=== PATIENT | male | born 1945 | race Caucasian/White ===

== ENCOUNTER → 2016-09-28 | Outpatient (CLI) | payer MEDICARE ==
[~2016-09-28] MED LIST: ADVIL200 MG PO; ALBUTEROL0.09 MG/A1 IH; ALDACTONE50 MG PO; ATIVAN PO; CAMPRAL333 MG PO; CLEOCIN HCL300 MG PO; COMBIRESP IH; CREON PO; EFFEXOR 75M75 MG/TAB PO; EFFEXOR XR75 MG/CAP PO; ENULOSE PO; FOLIC ACID PO; FOLIC ACID1 MG PO; KDUR PO; KLONOPIN 1MG1 MG PO; LACTULOSE SYR 10/15 PO; LASIX 40MG TABL40 MG PO; LASIX PO; LEVAQUIN 750MG750 M1 PO; MULTIPLE VITAMI1 TA5 PO; MVI; MVI PO; NORCO 325 MG-51 TAB PO; POTASSIUM CH2 MEQ/ML PO; PREDNISONE20 MG PO; PREVACID 15MG15 MG PO; PREVACID 30MG30 M1 PO; PREVACID 30MG30 MG PO; PRILOSEC 20MG20 MG PO; PROAIR HFA0.09 MG/AC IH; RT SPIRIVA18 MCG IH; SUPER EPA W/BO400 MG PO; TYLENOL 325MG325 MG PO; ULTRAM ER100 MG PO; VITAMIN B 1 PO; [UNRECOGNIZED DRUG - CODE] PO
== END ==
LOC: COL.VAS 08:55
DX: J44.9 Chronic obstructive pulmonary disease, unspecified (principal); I08.1 Rheumatic disorders of both mitral and tricuspid valves

== ENCOUNTER → 2016-11-02 | Outpatient (CLI) | payer MEDICARE | LOC: COL.RAD 10:30 | DX: Z13.6 Encounter for screening for cardiovascular disorders (principal); I71.4 Abdominal aortic aneurysm, without rupture; Z87.891 Personal history of nicotine dependence ==

== ENCOUNTER → 2018-03-07 | Outpatient (CLI) | payer MEDICARE | LOC: COL.PUL 09:53 | DX: J44.9 Chronic obstructive pulmonary disease, unspecified (principal); I07.1 Rheumatic tricuspid insufficiency ==

== ENCOUNTER 2018-11-20 14:35 | Emergency (ER) | payer MEDICARE ==
[~2018-11-20] VITALS: Ht 185.4 cm; Wt 122.7 kg
[2018-11-20 14:38] VITALS: TEMP 98.3
[2018-11-20 15:16] LABS: BASO % 0.4 % (0.0-2.0); EOS # 0.2 (0.0-0.7); EOS % 2.2 % (0-4.0); GRAN # 4.2 (1.4-6.5); HEMATOCRIT 40.9 % (42.0-52.0); HEMOGLOBIN 12.5 g/dl (13.5-18.0); LYMPH % 26.4 % (20.0-51.0); MEAN CELL VOLUME 99 fl (80.0-100.0); MEAN CORPUSCULAR HEMOGLOBIN 30 pg (27.0-31.0); MEAN CORPUSCULAR HGB CONC 31 g/dl (33.0-37.0); MEAN PLATELET VOLUME 8.8 fl (7.4-10.4); MONO # 1.1 (0.1-0.6); MONO % 14.6 % (1.7-9.3); PLATELET COUNT 166 K/mm3 (130-400); RED BLOOD COUNT 4.13 M/mm3 (4.20-5.60); REDCELL DISTRIBUTION WIDTH-CV 12.5 % (11.5-14.5)
[2018-11-20 15:22] LABS: PROTHROMBIN TIME 11.7 SECONDS (9.7-12.8)
[2018-11-20 15:28] LABS: LACTIC ACID 0.8 mmol/L (0.4-2.0)
[2018-11-20 15:30] LABS: ALANINE AMINOTRANSFERASE 13 U/L (21-72); ALBUMIN 3.9 gm/dL (3.5-5.0); ALKALINE PHOSPHATASE 70 U/L (50-136); AST,SGOT 28 U/L (15-37); BLOOD UREA NITROGEN 15 mg/dL (9-20); C-REACTIVE PROTEIN 1.2 mg/dL (0.0-0.9); CALCIUM 9.2 mg/dL (8.4-10.2); CREATININE, serum 0.55 (0.66-1.25); GLUCOSE 98 mg/dL (74-106); LIPASE 53 U/L (23-300); POTASSIUM 4.4 mmol/L (3.4-5.0); SODIUM 132 mmol/L (137-145); TOTAL PROTEIN 7.2 gm/dL (6.4-8.2)
[2018-11-20 15:33] LABS: ARTERIAL BLD GAS O2 SATURATION 94.3 % (92-100); ARTERIAL BLD GAS TCO2 CT 40.4; ARTERIAL BLOOD GAS BASE EXCESS 9.9 (-2-2); ARTERIAL BLOOD GAS HCO3 38.2 meq/L (22-26); ARTERIAL BLOOD GAS PO2 75.1 mmHg (80-100); ARTERIAL BLOOD GAS pH 7.35 (7.35-7.45)
[2018-11-20 15:34] LABS: ARTERIAL BLOOD GAS PCO2 70.8 mmHg (35-45)
[2018-11-20 15:35] LABS: CHLORIDE 79 mmol/L (98-107)
[2018-11-20 15:36] LABS: ALCOHOL(ethanol),MEDICAL < 10 mg/dL; ANION GAP 12 mmol/L (7-16); CARBON DIOXIDE 43 mmol/L (22-30)
[2018-11-20 15:40] LABS: TROPONIN-I < 0.012 ng/mL (0.000-0.035)
[2018-11-20] MEDS ORDERED: STIOLTO RESPIMAT4 GM (16:12)
[2018-11-20] MEDS ORDERED: MOBIC15 MG PO (16:12)
[2018-11-20] MEDS ORDERED: PREDNISONE20 MG (16:13)
[2018-11-20 17:10] LABS: COLLECTION METHOD CLEAN CATCH
[2018-11-20 17:27] LABS: AMORPHOUS CRYSTAL Present /uL; MUCOUS Present /lpf; PH 9 (5-8); SQUAMOUS EPITHELIAL 0-2 /hpf; URINE APPEARANCE Cloudy; URINE BACTERIA None Seen /hpf; URINE BILIRUBIN Negative (NEGATIVE); URINE BLOOD Negative (NEGATIVE); URINE COLOR Yellow; URINE GLUCOSE Negative (NEGATIVE); URINE KETONE 1+ (NEGATIVE); URINE LEUKOCYTE ESTERASE Negative (NEGATIVE); URINE NITRATE Negative (NEGATIVE); URINE PROTEIN(semi-quant) 1+ (NEGATIVE); URINE RBC None Seen /hpf; URINE UROBILINOGEN Negative (NEGATIVE)
[2018-11-20 19:00] VITALS: BP 137/71; PULSE 69
== END 2018-11-20 19:15 | disposition home or self-care (01) ==
LOC: COL.ER 14:35
PROVIDERS: Emergency Medicine
DX: J44.9 Chronic obstructive pulmonary disease, unspecified (principal); R06.89 Other abnormalities of breathing; K74.60 Unspecified cirrhosis of liver; F17.210 Nicotine dependence, cigarettes, uncomplicated; Z98.890 Other specified postprocedural states; Z86.73 Personal history of transient ischemic attack (TIA), and cerebral infarction without residual deficits; Z66 Do not resuscitate; Z79.52 Long term (current) use of systemic steroids
CPT/HCPCS: J7030

== ENCOUNTER 2019-01-17 08:44 | Inpatient (IN) | payer MEDICARE ==
[2019-01-17] VITALS (268 sets, daily range): BP systolic 136–140; BP diastolic 79–88; PULSE 70–93; TEMP 97.9–99.1; O2SAT 76–100
[~2019-01-17] VITALS: Ht 182.9 cm; Wt 102.3 kg
[~2019-01-17 08:44] MED LIST changes: +MOBIC15 MG PO; +PREDNISONE20 MG; +STIOLTO RESPIMAT4 GM PO
[2019-01-17] MEDS ORDERED: TYLENOL 500MG500 MG PO (08:58)
[2019-01-17] MEDS ORDERED: LACTULOSE10 GM/153 PO (08:59)
[2019-01-17 09:32] LABS: BASO % 0.2 % (0.0-2.0); EOS # 0.2 (0.0-0.7); EOS % 2.5 % (0-4.0); GRAN # 5.3 (1.4-6.5); GRAN % 62.8 % (42.2-75.2); HEMATOCRIT 40.9 % (42.0-52.0); HEMOGLOBIN 11.7 g/dl (13.5-18.0); LYMPH # 1.6 (1.2-3.4); LYMPH % 19.1 % (20.0-51.0); MEAN CELL VOLUME 105 fl (80.0-100.0); MEAN CORPUSCULAR HEMOGLOBIN 30 pg (27.0-31.0); MEAN CORPUSCULAR HGB CONC 29 g/dl (33.0-37.0); MEAN PLATELET VOLUME 9.3 fl (7.4-10.4); MONO # 1.3 (0.1-0.6); PLATELET COUNT 150 K/mm3 (130-400); RED BLOOD COUNT 3.88 M/mm3 (4.20-5.60); REDCELL DISTRIBUTION WIDTH-CV 13.5 % (11.5-14.5)
[2019-01-17 09:37] LABS: ARTERIAL BLD GAS O2 SATURATION 93.8 % (92-100); ARTERIAL BLOOD GAS HCO3 48.5 meq/L (22-26)
[2019-01-17 09:41] LABS: ALANINE AMINOTRANSFERASE 20 U/L (21-72); ALBUMIN 3.6 gm/dL (3.5-5.0); ALKALINE PHOSPHATASE 60 U/L (50-136); AST,SGOT 31 U/L (15-37); BLOOD UREA NITROGEN 10 mg/dL (9-20); CALCIUM 8.8 mg/dL (8.4-10.2); CREATININE, serum 0.46 (0.66-1.25); GLUCOSE 93 mg/dL (74-106); POTASSIUM 4.5 mmol/L (3.4-5.0); SODIUM 142 mmol/L (137-145); TOTAL PROTEIN 6.7 gm/dL (6.4-8.2)
[2019-01-17 09:53] LABS: CHLORIDE 85 mmol/L (98-107)
[2019-01-17 09:54] LABS: CARBON DIOXIDE 52 mmol/L (22-30)
[2019-01-17 09:55] LABS: ALCOHOL(ethanol),MEDICAL < 10 mg/dL; ANION GAP 5 mmol/L (7-16)
--- NOTE | 2019-01-17 12:20 | NUR ---
Patient arrives to ICU 5 via ED cart. He is transferred to bed and attached to monitors. Assessment and vitals as charted. Care assumed at this time.
--- NOTE | 2019-01-17 12:27 | NUR ---
Dr. Ziegler in to see patient at this time. Orders as entered CPOE.
[2019-01-17 12:52] LABS: ARTERIAL BLD GAS O2 SATURATION 93.1 % (92-100); ARTERIAL BLD GAS TCO2 CT 54.5; ARTERIAL BLOOD GAS BASE EXCESS 21.3 (-2-2); ARTERIAL BLOOD GAS HCO3 51.7 meq/L (22-26); ARTERIAL BLOOD GAS PCO2 91.4 mmHg (35-45); ARTERIAL BLOOD GAS PO2 62.6 mmHg (80-100); ARTERIAL BLOOD GAS pH 7.37 (7.35-7.45)
[2019-01-17 16:30] LABS: ARTERIAL BLD GAS O2 SATURATION 98.5 % (92-100); ARTERIAL BLD GAS TCO2 CT 55.2; ARTERIAL BLOOD GAS BASE EXCESS 20.6 (-2-2); ARTERIAL BLOOD GAS HCO3 52.1 meq/L (22-26); ARTERIAL BLOOD GAS PCO2 102.7 mmHg (35-45); ARTERIAL BLOOD GAS PO2 142.1 mmHg (80-100); ARTERIAL BLOOD GAS pH 7.32 (7.35-7.45)
--- NOTE | 2019-01-17 19:15 | NUR ---
Bedside report received from DEDE Gilmore. Transfer of care.
--- NOTE | 2019-01-17 20:00 | NUR ---
Patient awake in bed watching tv. He is alert and oriented and answers all questions appropriately. Follows commands. Patient has complaints of pain rated 8/10, but is chronic pain from osteoarthritis in his right hip and lower back. Has no complaints where fracture is. Patient also has no complaints when he is relaxing, pain with movement. Offered some tylenol, he accepts, will be brought in with evening meds. Assessment complete. Patient has inspiratory and expiratory wheezes in all hadley, all lung hadley are also diminished. Patient's HR and rhythm are regular with normal S1 and S2. Bowel sounds active. Patient has some pitting edema to the lower extremities. Skin to the lower legs and feet is red and flaking, warm to the touch, nonpainful. Patient does have visible tremors. Temp is slightly elevated at 99.1. All other vitals remain stable. Patient has no further needs at this time. Will continue to monitor. Call light within reach.
[2019-01-18] VITALS (663 sets, daily range): BP systolic 93–137; BP diastolic 60–79; PULSE 70–94; TEMP 98.7–99.8; O2SAT 82–99
--- NOTE | 2019-01-18 | NUR ---
Patient awake watching tv. Patient remains alert and oriented, following commands. Assessment complete. Only changes from previous exam is lungs are now clear and diminished, no more wheezing present. Vitals have remained stable. Patient requests to be left off BiPAP for a little longer. No further needs. Will continue to monitor. Call light within reach.
--- NOTE | 2019-01-18 04:00 | NUR ---
Patient sleeping on BiPAP at this time. Awakens to name. Assessment complete and has no changes from previous exam. Vitals remain stable. Patient has no current needs. Will continue to monitor. Call light within reach.
[2019-01-18 05:21] LABS: GRAN # 4.7 (1.4-6.5); GRAN % 80.3 % (42.2-75.2); HEMATOCRIT 42.1 % (42.0-52.0); HEMOGLOBIN 12.4 g/dl (13.5-18.0); LYMPH % 16.8 % (20.0-51.0); MEAN CELL VOLUME 102 fl (80.0-100.0); MEAN CORPUSCULAR HEMOGLOBIN 30 pg (27.0-31.0); MEAN CORPUSCULAR HGB CONC 30 g/dl (33.0-37.0); MEAN PLATELET VOLUME 9.8 fl (7.4-10.4); MONO # 0.2 (0.1-0.6); MONO % 2.6 % (1.7-9.3); PLATELET COUNT 191 K/mm3 (130-400); RED BLOOD COUNT 4.13 M/mm3 (4.20-5.60); REDCELL DISTRIBUTION WIDTH-CV 13.3 % (11.5-14.5)
[2019-01-18 06:02] LABS: ARTERIAL BLD GAS O2 SATURATION 94.1 % (92-100); ARTERIAL BLD GAS TCO2 CT 46.5; ARTERIAL BLOOD GAS BASE EXCESS 16.8 (-2-2); ARTERIAL BLOOD GAS HCO3 44.5 meq/L (22-26); ARTERIAL BLOOD GAS PO2 65.9 mmHg (80-100); ARTERIAL BLOOD GAS pH 7.44 (7.35-7.45)
[2019-01-18 06:06] LABS: ARTERIAL BLOOD GAS PCO2 67.3 mmHg (35-45)
[2019-01-18 06:11] LABS: CALCIUM 9.1 mg/dL (8.4-10.2); CREATININE, serum 0.5 (0.66-1.25); POTASSIUM 4.3 mmol/L (3.4-5.0)
--- NOTE | 2019-01-18 07:30 | NUR ---
Bedside report given to Frantz RN and DEDE Petersen. Transfer of care.
--- NOTE | 2019-01-18 08:00 | NUR ---
PATIENT ASSESSED AND REPOSITIONED. VITALS STABLE. PATIENT PAIN ADDRESSED. QUESTIONS AND CONCERNS ADDRESSED. BED IN LOW POSITION, CALL LIGHT WITHIN REACH, ASSISTED WITH ORDERING BREAKFAST. WILL CONTINUE TO MONITOR.
--- NOTE | 2019-01-18 10:48 | NUR ---
Initial visit; Patient thanked [employer] for looking in on him and offering God's blessings. [employer] let him know he was listed as Jewish so he will be offered Holy Communion while he is hospitalized.
--- NOTE | 2019-01-18 12:50 | NUR ---
Recieved call from Dr. Ziegler's office to schedule 3 week follow up appointment. Appointment made for January at 0930. Patient's nurse notified
--- NOTE | 2019-01-18 13:33 | NUR ---
SW met with patient to discuss discharge planning. Patient lives alone at [facility]. He does most of his ADLs independently but they do help shower. He uses a walker and has a lift chair that he sits and sleeps in. Patients PCP is Dr Taylor and he obtains his medications at [facility]. Patients DPOA is on the chart and lists Jacquelyn Vanegas (ex ) as primary and Obie Vanegas (son) as secondary. PT is recommending SNF. Patient would like #1 [facility] and #2 [facility]. SW made referrals to both. Will continue to follow.
--- NOTE | 2019-01-18 15:15 | NUR ---
[facility] can accept patient but doesnt know if they will have transport if he discharges monday. [facility] has denied.
--- NOTE | 2019-01-18 19:00 | NUR ---
Report received by Trinity AGUAYO. Pt resting in bed at this time and asked for assistance with urinal. Assistance provided, reviewed use of the call light. Currently on oxymask for O2 administration.
[2019-01-19] VITALS (754 sets, daily range): BP systolic 114–132; BP diastolic 60–72; PULSE 78–94; TEMP 98.3–99; O2SAT 80–100
[2019-01-19 05:40] LABS: BASO % 0.1 % (0.0-2.0); GRAN # 6.7 (1.4-6.5); GRAN % 83.9 % (42.2-75.2); HEMATOCRIT 37.8 % (42.0-52.0); HEMOGLOBIN 11.7 g/dl (13.5-18.0); LYMPH # 0.7 (1.2-3.4); MEAN CELL VOLUME 98 fl (80.0-100.0); MEAN CORPUSCULAR HEMOGLOBIN 30 pg (27.0-31.0); MEAN CORPUSCULAR HGB CONC 31 g/dl (33.0-37.0); MONO # 0.5 (0.1-0.6); MONO % 6.7 % (1.7-9.3); PLATELET COUNT 189 K/mm3 (130-400); RED BLOOD COUNT 3.87 M/mm3 (4.20-5.60); REDCELL DISTRIBUTION WIDTH-CV 14.1 % (11.5-14.5)
[2019-01-19 05:54] LABS: ALBUMIN 3.4 gm/dL (3.5-5.0); BILIRUBIN,TOTAL 0.7 mg/dL (0.0-1.0); CALCIUM 9.2 mg/dL (8.4-10.2); CREATININE, serum 0.56 (0.66-1.25); POTASSIUM 4.1 mmol/L (3.4-5.0); TOTAL PROTEIN 6.5 gm/dL (6.4-8.2)
--- NOTE | 2019-01-19 07:15 | NUR ---
Report provided to Marcia Arechiga RN. Pt resting in bed with Bipap on although removed for administration of PO Levaquin and placed on Oxymask.
[2019-01-19 08:33] LABS: ARTERIAL BLD GAS O2 SATURATION 94.6 % (92-100); ARTERIAL BLOOD GAS BASE EXCESS 12.2 (-2-2); ARTERIAL BLOOD GAS HCO3 39.1 meq/L (22-26); ARTERIAL BLOOD GAS PCO2 61.4 mmHg (35-45); ARTERIAL BLOOD GAS PO2 75.6 mmHg (80-100); ARTERIAL BLOOD GAS pH 7.42 (7.35-7.45)
--- NOTE | 2019-01-19 12:39 | NUR ---
PATIENT ASSESSED AND REPOSITIONED. ASSISTED WITH ORDERING BREAKFAST. VITALS STABLE. WILL CONTINUE TO MONITOR.
--- NOTE | 2019-01-19 19:05 | NUR ---
Report received from Trinity AGUAYO. Pt resting in bed at this time. Pt was assisted with boosting in bed.
--- NOTE | 2019-01-19 19:33 | NUR ---
REPORT GIVEN TO DEDE JOHNSON.
[2019-01-20] VITALS (974 sets, daily range): BP systolic 114–139; BP diastolic 62–83; PULSE 64–80; TEMP 97.5–98.5; O2SAT 86–99
[2019-01-20 04:35] LABS: HEMATOCRIT 37.7 % (42.0-52.0); HEMOGLOBIN 11.5 g/dl (13.5-18.0); MEAN CELL VOLUME 98 fl (80.0-100.0); MEAN CORPUSCULAR HEMOGLOBIN 30 pg (27.0-31.0); MEAN CORPUSCULAR HGB CONC 31 g/dl (33.0-37.0); MEAN PLATELET VOLUME 9.8 fl (7.4-10.4); PLATELET COUNT 191 K/mm3 (130-400); RED BLOOD COUNT 3.83 M/mm3 (4.20-5.60); REDCELL DISTRIBUTION WIDTH-CV 14.4 % (11.5-14.5)
[2019-01-20 04:50] LABS: BAND 9 % (0-10); LYMPHOCYTE 20 % (20.0-51.0); NEUTROPHILS 56 % (42.0-75.2); PLATELET ESTIMATE NORMAL (NORMAL)
[2019-01-20 04:53] LABS: CALCIUM 9.1 mg/dL (8.4-10.2); CREATININE, serum 0.6 (0.66-1.25); POTASSIUM 3.6 mmol/L (3.4-5.0)
--- NOTE | 2019-01-20 07:10 | NUR ---
REPORT GIVEN TO DEDE CUEVA.
--- NOTE | 2019-01-20 07:30 | NUR ---
Report provided to Marcia AGUAYO. Pt resting in bed on Bipap at this time.
--- NOTE | 2019-01-20 09:30 | NUR ---
PATIENT ASSESSED, PAIN ADDRESSED, VITALS STABLE. CALL LIGHT AND PERSONAL ITEMS WITHIN REACH. WILL CONTINUE TO MONITOR.
--- NOTE | 2019-01-20 19:10 | NUR ---
Bedside report received from DEDE Petersen.
--- NOTE | 2019-01-20 20:00 | NUR ---
Patient is awake in bed, alert and oriented, watching TV. Patient states that the tylenol that was given helped and rates pain 5/10. No complaints of SOB. Assessment complete. Patient lungs are clear but diminished in all hadley. HR and rhythm regular with normal S1 and S2 heard. Bowel sounds active x4. Vitals are WNL and stable. Patient is still on 6L OM. Patient has no further needs at this time. Will continue to monitor. Call light within reach.
[2019-01-21] VITALS (858 sets, daily range): BP systolic 107–163; BP diastolic 59–88; PULSE 56–78; TEMP 97.4–98.8; O2SAT 87–100
--- NOTE | 2019-01-21 | NUR ---
Patient asleep on BiPAP at this time. Awakens to name. Patient rates pain the same as previously and in the same place. No complaints of SOB. Vitals remain stable. No further needs. Will continue to monitor. Call light within reach.
--- NOTE | 2019-01-21 04:00 | NUR ---
Patient awakens to name. Complains of same pain, but is not requesting medications at this time. No complaints of SOB. Vitals remain stable. Patient is tolerating BiPAP well. No further needs. Will continue to monitor. Call light within reach.
[2019-01-21 05:40] LABS: EOS # 0.1 (0.0-0.7); EOS % 0.7 % (0-4.0); GRAN # 5.1 (1.4-6.5); GRAN % 54.8 % (42.2-75.2); HEMATOCRIT 39.4 % (42.0-52.0); HEMOGLOBIN 12.2 g/dl (13.5-18.0); LYMPH # 2.8 (1.2-3.4); LYMPH % 30.5 % (20.0-51.0); MEAN CELL VOLUME 97 fl (80.0-100.0); MEAN CORPUSCULAR HEMOGLOBIN 30 pg (27.0-31.0); MEAN CORPUSCULAR HGB CONC 31 g/dl (33.0-37.0); MEAN PLATELET VOLUME 9.9 fl (7.4-10.4); MONO # 1.3 (0.1-0.6); MONO % 13.8 % (1.7-9.3); PLATELET COUNT 185 K/mm3 (130-400); RED BLOOD COUNT 4.06 M/mm3 (4.20-5.60); REDCELL DISTRIBUTION WIDTH-CV 14.3 % (11.5-14.5)
[2019-01-21 05:49] LABS: CREATININE, serum 0.73 (0.66-1.25); POTASSIUM 3.9 mmol/L (3.4-5.0)
--- NOTE | 2019-01-21 06:35 | NUR ---
Patient taken off BiPAP at this time per patient request.
--- NOTE | 2019-01-21 07:10 | NUR ---
Bedside report given to DEDE Lovelace.
--- NOTE | 2019-01-21 07:15 | NUR ---
Bedside shift report received from DEDE Alanis. Patient is awake, alert, and responds appropriately. Full assessment completed. Patient has no complaints or concerns at this time. Call light placed within reach. Bed in lowest position. Side rails up x3.
--- NOTE | 2019-01-21 09:20 | NUR ---
[facility] faxed patient update to Peña at [facility].
--- NOTE | 2019-01-21 13:33 | NUR ---
Peña, at [facility], contacted [facility] and requested the patient's bipap settings. SW provided those settings to Peña. Peña reports that they can accept the patient for a skilled stay; but that they will need to get the bipap ordered and delivered before they can take him. SW updated the clinical team.
--- NOTE | 2019-01-21 13:59 | NUR ---
PT ON BIPAP 18/5, BACKUP RATE 18, FIO2 45% WHEN WEARING BIPAP. ON 4-5 LPM NC WHEN OFF BIPAP.
--- NOTE | 2019-01-21 14:00 | NUR ---
Patient has had no major changes and remains stable at this time. Call light and personal items remain within reach.
--- NOTE | 2019-01-21 14:14 | NUR ---
Peña, at [facility], reports that they have the patient's bipap ordered, but that it will not be delivered to their facility until tomorrow morning. SW updated the patient's Binta SAUL.
--- NOTE | 2019-01-21 15:22 | NUR ---
Social work called to assess transfer to [facility]. Demetria with case management states that [facility] ordered the BiPAP but it will not be delivered until tomorrow, so the patient is not able to transfer today. tree trimming supervisor, Agnieszka, notified of patient's transfer orders to floor at this time.
--- NOTE | 2019-01-21 16:00 | NUR ---
Report called to DEDE Cardona on the medical floor at this time.
--- NOTE | 2019-01-21 16:40 | NUR ---
Patient transferred to medical bed 357 via medical bed with no complications. Patient has no complaints or concerns at this time. Nurse notified of arrival and at bedside to complete assessment. Call light and personal items within reach. Some personal items stored in the patient's closet.
--- NOTE | 2019-01-21 16:57 | NUR ---
PT arrived to 3rd floor Medical; PT A&Ox3, able to communicate needs and concerns; PT reported ABD pain 5/10 related to multiple administration of laxative medications; PT placed on humitified 4L oxygen via NC; 22G LAC INT in place; No acute SOB upon arrival, CTAB in upper lobes with diminished bases bilaterally; VS stable upon arrival; BLE erythematous skin with +1 pedal pulses with intermittent tenderness; ALLERGY TO PCN; last noted BM 01/16/[address] in [address]; Lovenox as VTE; HRRR; urinal at bedside; PT is an up with asssit with possible increase for fall risk; HX: left hip FX with osteoarthritis, uses walker at home, 4L oxygen via NC at home, COPD, depression, active smoker, recurrent pneumonia, ETOH (alcohol) with reported 6 beers daily not scoring, and BLE cellulitis; No further acute concerns reported or assessed at time of arrival assessment; Will continue to round and reassess. CDA
--- NOTE | 2019-01-21 18:56 | NUR ---
Report given to DEDE Garcia; No significant changes or concerns at shift change; Rounded to PT room with oncoming staff. CHAVAA
--- NOTE | 2019-01-21 19:45 | NUR ---
Shift assessment complete. Pt resting in bed, awake, a&o c occasional confused statements, cooperative c cares. Pt denies pain or other c/o at this time. Tele in place. INT patent. O2 per NC. Pt denies needs. Call light in reach, bed alarm on. Will continue to monitor.
[2019-01-22 00:10] VITALS: BP 134/65; PULSE 65; TEMP 98.5
[2019-01-22 03:37] VITALS: BP 132/66; PULSE 67; TEMP 97.8
[2019-01-22] MEDS ORDERED: Lidocaine 4% Patch TP (08:14)
[2019-01-22] MEDS ORDERED: COLACE 100100 MG/CAP PO (08:15)
[2019-01-22] MEDS ORDERED: MIRALAX PA17 GM/Dose PO (08:15)
[2019-01-22] MEDS ORDERED: THIAMINE 1100 MG/TAB PO (08:16)
[2019-01-22] MEDS ORDERED: FOLIC ACID 11 MG/TA1 PO (08:16)
[2019-01-22] MEDS ORDERED: MULTI VITAMINS1 TAB PO (08:16)
[2019-01-22 08:27] VITALS: BP 142/72; PULSE 67; TEMP 98.6
[2019-01-22] MEDS ORDERED: KLONOPIN 1MG1 MG PO (08:35)
--- NOTE | 2019-01-22 08:40 | NUR ---
Assessment complete. Pt sitting up in bed, A&O x 3. O2 at 4 L/min via NC. Pt reports still no BM, sched medications administered per orders to assist with BM. Saline lock IV to left AC without s/s of complications. No further needs reported Call light in reach.
[2019-01-22] MEDS ORDERED: PREDNISONE20 MG PO (08:45)
[2019-01-22] MEDS ORDERED: IPRATROPIUM BROM3 M1 IH (08:46)
--- NOTE | 2019-01-22 14:07 | NUR ---
SW met with patient to present IM and verbally discussed the contents. Patient was agreeable and signed the form. SW provided patient with a copy and put the original on the chart. Patient is dc today to [facility] for group home. Transportation will be here around 3 pm. Discharge orders faxed and nursing staff informed.
--- NOTE | 2019-01-22 16:20 | NUR ---
Pt discharged to [facility] via . Paperwork with staff.
--- NOTE | 2019-01-22 17:40 | NUR ---
Report called to Carmen nurse at [facility].
== END 2019-01-22 16:20 | DRG 189 ==
LOC: COL.ER 08:44 → ICU 10:09 → EDBEDREQ 10:35 → MEDICAL 01-21 16:31
PROVIDERS: Family Medicine; Internal Medicine Pulmonary Disease; Physician Assistant; ADMIT Hospitalist
PROC: 5A09457 Assistance with Respiratory Ventilation, 24-96 Consecutive Hours, Continuous Positive Airway Pressure (ICD-10-PCS; principal; 2019-01-21)
DX: J96.21 Acute and chronic respiratory failure with hypoxia (principal); J44.1 Chronic obstructive pulmonary disease with (acute) exacerbation; E87.2 Acidosis; E87.3 Alkalosis; J96.22 Acute and chronic respiratory failure with hypercapnia; S70.01XA Contusion of right hip, initial encounter; Z66 Do not resuscitate; G89.29 Other chronic pain; M16.0 Bilateral primary osteoarthritis of hip; S82.831A Other fracture of upper and lower end of right fibula, initial encounter for closed fracture; F10.20 Alcohol dependence, uncomplicated; K70.30 Alcoholic cirrhosis of liver without ascites; W17.89XA Other fall from one level to another, initial encounter; E87.8 Other disorders of electrolyte and fluid balance, not elsewhere classified; F17.210 Nicotine dependence, cigarettes, uncomplicated; D64.9 Anemia, unspecified; K59.00 Constipation, unspecified; Z88.0 Allergy status to penicillin; Y93.89 Activity, other specified; Y92.009 Unspecified place in unspecified non-institutional (private) residence as the place of occurrence of the external cause; Y99.8 Other external cause status
CPT/HCPCS: 99222-AI; 99231-AI; 99232-AI; 99233-AI; 99239; J1650; J2060; J2920; J7512

== ENCOUNTER 2019-04-12 14:38 | Emergency (ER) | payer MEDICARE ==
[~2019-04-12] VITALS: Ht 177.8 cm; Wt 114.5 kg
[~2019-04-12 14:38] MED LIST changes: +COLACE 100100 MG/CAP PO; +FOLIC ACID 11 MG/TA1 PO; +IPRATROPIUM BROM3 M1 IH; +LACTULOSE10 GM/153 PO; +Lidocaine 4% Patch TP; +MIRALAX PA17 GM/Dose PO; +MULTI VITAMINS1 TAB PO; +THIAMINE 1100 MG/TAB PO; +TYLENOL 500MG500 MG PO
[2019-04-12 15:16] LABS: BASO % 0.4 % (0.0-2.0); EOS # 0.3 (0.0-0.7); EOS % 4.1 % (0-4.0); GRAN # 3.5 (1.4-6.5); HEMATOCRIT 38.9 % (42.0-52.0); HEMOGLOBIN 12.1 g/dl (13.5-18.0); LYMPH # 3.1 (1.2-3.4); LYMPH % 38.9 % (20.0-51.0); MEAN CELL VOLUME 100 fl (80.0-100.0); MEAN CORPUSCULAR HEMOGLOBIN 31 pg (27.0-31.0); MEAN CORPUSCULAR HGB CONC 31 g/dl (33.0-37.0); MEAN PLATELET VOLUME 9.5 fl (7.4-10.4); MONO % 12.6 % (1.7-9.3); PLATELET COUNT 178 K/mm3 (130-400); RED BLOOD COUNT 3.89 M/mm3 (4.20-5.60); REDCELL DISTRIBUTION WIDTH-CV 13.1 % (11.5-14.5)
[2019-04-12 15:39] LABS: BILIRUBIN,TOTAL 0.7 mg/dL (0.0-1.0); CALCIUM 9.1 mg/dL (8.4-10.2); CREATININE, serum 0.5 (0.66-1.25); POTASSIUM 4.6 mmol/L (3.4-5.0); TOTAL PROTEIN 6.9 gm/dL (6.4-8.2)
[2019-04-12 16:15] VITALS: BP 97/67; PULSE 66; TEMP 98.2
== END 2019-04-12 17:15 | disposition home or self-care (01) ==
LOC: COL.ER 14:38
PROVIDERS: Emergency Medicine
DX: J96.10 Chronic respiratory failure, unspecified whether with hypoxia or hypercapnia (principal); J44.9 Chronic obstructive pulmonary disease, unspecified

== ENCOUNTER 2019-06-24 10:00 | Emergency (ER) | payer MEDICARE, MEDICAID ==
[~2019-06-24] VITALS: Ht 185.4 cm; Wt 115.9 kg
[2019-06-24 10:06] VITALS: TEMP 97.7
[2019-06-24 11:12] LABS: BASO % 0.4 % (0.0-2.0); EOS # 0.2 (0.0-0.7); EOS % 3.2 % (0-4.0); GRAN # 3.9 (1.4-6.5); GRAN % 56.2 % (42.2-75.2); HEMATOCRIT 38.5 % (42.0-52.0); HEMOGLOBIN 12.4 g/dl (13.5-18.0); LYMPH # 1.7 (1.2-3.4); LYMPH % 24.3 % (20.0-51.0); MEAN CELL VOLUME 96 fl (80.0-100.0); MEAN CORPUSCULAR HEMOGLOBIN 31 pg (27.0-31.0); MEAN CORPUSCULAR HGB CONC 32 g/dl (33.0-37.0); MEAN PLATELET VOLUME 9.1 fl (7.4-10.4); MONO # 1.1 (0.1-0.6); MONO % 15.5 % (1.7-9.3); PLATELET COUNT 205 K/mm3 (130-400); RED BLOOD COUNT 4.01 M/mm3 (4.20-5.60); REDCELL DISTRIBUTION WIDTH-CV 12.3 % (11.5-14.5)
[2019-06-24 11:15] LABS: PROTHROMBIN TIME 11.2 SECONDS (9.7-12.8)
[2019-06-24 11:17] LABS: ALANINE AMINOTRANSFERASE 21 U/L (21-72); ALBUMIN 4.2 gm/dL (3.5-5.0); ALKALINE PHOSPHATASE 71 U/L (50-136); AST,SGOT 36 U/L (15-37); BLOOD UREA NITROGEN 13 mg/dL (9-20); CALCIUM 8.6 mg/dL (8.4-10.2); CREATININE, serum 0.49 (0.66-1.25); GLUCOSE 90 mg/dL (74-106); POTASSIUM 4.2 mmol/L (3.4-5.0); SODIUM 128 mmol/L (137-145); TOTAL PROTEIN 7.1 gm/dL (6.4-8.2)
[2019-06-24 11:22] LABS: CARBON DIOXIDE 40 mmol/L (22-30); CHLORIDE 81 mmol/L (98-107)
[2019-06-24 11:23] LABS: ALCOHOL(ethanol),MEDICAL < 10 mg/dL; ANION GAP 7 mmol/L (7-16)
[2019-06-24 15:13] VITALS: BP 149/77; PULSE 88
== END 2019-06-24 14:45 | disposition home or self-care (01) ==
LOC: COL.ER 10:00
PROVIDERS: Emergency Medicine
DX: M25.552 Pain in left hip (principal); J44.9 Chronic obstructive pulmonary disease, unspecified; F17.210 Nicotine dependence, cigarettes, uncomplicated; W19.XXXA Unspecified fall, initial encounter
CPT/HCPCS: J3010; J7040

== ENCOUNTER 2019-07-26 08:31 | Emergency (ER) | payer MEDICARE, MEDICAID ==
[2019-07-26 08:34] VITALS: BP 148/90; TEMP 96.8
[2019-07-26 09:30] LABS: BASO % 0.3 % (0.0-2.0); EOS # 0.3 (0.0-0.7); EOS % 2.9 % (0-4.0); GRAN # 5.7 (1.4-6.5); GRAN % 62.2 % (42.2-75.2); HEMATOCRIT 39.7 % (42.0-52.0); HEMOGLOBIN 12.4 g/dl (13.5-18.0); LYMPH # 2.1 (1.2-3.4); LYMPH % 22.4 % (20.0-51.0); MEAN CELL VOLUME 97 fl (80.0-100.0); MEAN CORPUSCULAR HEMOGLOBIN 30 pg (27.0-31.0); MEAN CORPUSCULAR HGB CONC 31 g/dl (33.0-37.0); MEAN PLATELET VOLUME 8.8 fl (7.4-10.4); MONO # 1.1 (0.1-0.6); PLATELET COUNT 217 K/mm3 (130-400); RED BLOOD COUNT 4.09 M/mm3 (4.20-5.60); REDCELL DISTRIBUTION WIDTH-CV 12.8 % (11.5-14.5)
[2019-07-26 09:41] LABS: ALANINE AMINOTRANSFERASE 18 U/L (21-72); ALBUMIN 4.2 gm/dL (3.5-5.0); ALKALINE PHOSPHATASE 62 U/L (50-136); ANION GAP 8 mmol/L (7-16); AST,SGOT 31 U/L (15-37); BILIRUBIN,TOTAL 0.8 mg/dL (0.0-1.0); BLOOD UREA NITROGEN 14 mg/dL (9-20); CALCIUM 9.1 mg/dL (8.4-10.2); CARBON DIOXIDE 36 mmol/L (22-30); CREATININE, serum 0.56 (0.66-1.25); GLUCOSE 152 mg/dL (74-106); POTASSIUM 4.2 mmol/L (3.4-5.0); SODIUM 132 mmol/L (137-145); TOTAL PROTEIN 7.1 gm/dL (6.4-8.2)
[2019-07-26 09:42] LABS: ALCOHOL(ethanol),MEDICAL < 10 mg/dL
[2019-07-26 09:43] LABS: CHLORIDE 88 mmol/L (98-107)
[2019-07-26 10:01] LABS: TROPONIN-I < 0.012 ng/mL (0.000-0.035)
[2019-07-26 11:30] VITALS: PULSE 82
== END 2019-07-26 11:30 | disposition home or self-care (01) ==
LOC: COL.ER 08:31
PROVIDERS: Emergency Medicine
DX: M25.552 Pain in left hip (principal); G89.29 Other chronic pain; J44.9 Chronic obstructive pulmonary disease, unspecified; F17.210 Nicotine dependence, cigarettes, uncomplicated; R40.2412 Glasgow coma scale score 13-15, at arrival to emergency department; W18.39XA Other fall on same level, initial encounter; Y92.129 Unspecified place in nursing home as the place of occurrence of the external cause
CPT/HCPCS: J7040